=== PATIENT | female | born 1970 | race Caucasian/White ===

== ENCOUNTER 2016-07-06 09:11 | Emergency (ER) | payer SELFPAY ==
[~2016-07-06] VITALS: Ht 162.6 cm; Wt 69.5 kg
[2016-07-06 09:20] VITALS: BP 145/103
[2016-07-06] MEDS ORDERED: KETOROLAC TROMETH 60MG/2ML VIAL IM ONE (10:30)
== END 2016-07-06 11:14 | disposition home or self-care (01) ==
LOC: ER 09:18
DX: S90.461A Insect bite (nonvenomous), right great toe, initial encounter (principal); W57.XXXA Bitten or stung by nonvenomous insect and other nonvenomous arthropods, initial encounter; F17.210 Nicotine dependence, cigarettes, uncomplicated; F41.9 Anxiety disorder, unspecified; Z88.2 Allergy status to sulfonamides; Z88.8 Allergy status to other drugs, medicaments and biological substances; Z76.0 Encounter for issue of repeat prescription; Y93.89 Activity, other specified; Y99.8 Other external cause status; Y92.89 Other specified places as the place of occurrence of the external cause
CPT/HCPCS: 96372; 99283; J1885

== ENCOUNTER 2016-08-01 22:48 | Emergency (ER) | payer SELFPAY ==
[~2016-08-01] VITALS: Ht 162.6 cm; Wt 70.4 kg
[2016-08-01 23:29] VITALS: BP 139/87
[2016-08-02] MEDS ORDERED: ACETAMINOPHEN/CODEINE#3 (300/30mg) TAB PO ONE (02:45)
== END 2016-08-02 03:45 | disposition home or self-care (01) ==
LOC: ER 22:53
DX: S52.501A Unspecified fracture of the lower end of right radius, initial encounter for closed fracture (principal); Z88.8 Allergy status to other drugs, medicaments and biological substances; F17.210 Nicotine dependence, cigarettes, uncomplicated; V29.60XA Unspecified motorcycle rider injured in collision with unspecified motor vehicles in traffic accident, initial encounter; Y93.89 Activity, other specified; Y99.8 Other external cause status; Y92.89 Other specified places as the place of occurrence of the external cause
CPT/HCPCS: 29105; 29125; 73060; 73090

== ENCOUNTER 2016-08-10 12:13 | Emergency (ER) | payer SELFPAY ==
[~2016-08-10] VITALS: Ht 162.6 cm; Wt 68.5 kg
[2016-08-10] MEDS ORDERED: BACITRACIN TOP OINT 1 UD PKG TOP ONE (16:15)
[2016-08-10] MEDS ORDERED: cefTRIAXone W LIDOCAINE 1 GM IM IM ONE (16:15)
== END 2016-08-10 16:25 | disposition home or self-care (01) ==
LOC: ER 12:15
DX: S52.512D Displaced fracture of left radial styloid process, subsequent encounter for closed fracture with routine healing (principal); R21 Rash and other nonspecific skin eruption; G47.00 Insomnia, unspecified; F17.210 Nicotine dependence, cigarettes, uncomplicated; Z88.8 Allergy status to other drugs, medicaments and biological substances; Z48.01 Encounter for change or removal of surgical wound dressing
CPT/HCPCS: 29125; 73090; 99284; J0696

== ENCOUNTER 2016-10-30 14:56 | Emergency (ER) | payer SELFPAY ==
[~2016-10-30] VITALS: Ht 162.6 cm; Wt 72.6 kg
[2016-10-30 15:29] VITALS: BP 144/88
== END 2016-10-30 17:45 | disposition left against medical advice (07) ==
LOC: ER 15:19
DX: S00.96XA Insect bite (nonvenomous) of unspecified part of head, initial encounter (principal); Z53.21 Procedure and treatment not carried out due to patient leaving prior to being seen by health care provider; W57.XXXA Bitten or stung by nonvenomous insect and other nonvenomous arthropods, initial encounter; Y93.89 Activity, other specified; Y99.8 Other external cause status; Y92.89 Other specified places as the place of occurrence of the external cause

== ENCOUNTER 2017-02-06 17:35 | Emergency (ER) | payer SELFPAY ==
[2017-02-06 19:23] VITALS: BP 138/86
== END 2017-02-06 19:40 | disposition left against medical advice (07) ==
LOC: ER 17:35
DX: S00.86XA Insect bite (nonvenomous) of other part of head, initial encounter (principal); Z53.21 Procedure and treatment not carried out due to patient leaving prior to being seen by health care provider; W57.XXXA Bitten or stung by nonvenomous insect and other nonvenomous arthropods, initial encounter; Y93.89 Activity, other specified; Y92.89 Other specified places as the place of occurrence of the external cause; Y99.8 Other external cause status

== ENCOUNTER 2017-02-08 15:20 | Emergency (ER) | payer SELFPAY ==
[~2017-02-08] VITALS: Ht 162.6 cm; Wt 64.0 kg
[2017-02-08 17:04] VITALS: BP 133/97
== END 2017-02-08 17:27 | disposition home or self-care (01) ==
LOC: ER 15:23
DX: S80.862A Insect bite (nonvenomous), left lower leg, initial encounter (principal); S90.464A Insect bite (nonvenomous), right lesser toe(s), initial encounter; F17.210 Nicotine dependence, cigarettes, uncomplicated; F41.9 Anxiety disorder, unspecified; W57.XXXA Bitten or stung by nonvenomous insect and other nonvenomous arthropods, initial encounter; Y93.89 Activity, other specified; Y92.89 Other specified places as the place of occurrence of the external cause; Y99.8 Other external cause status

== ENCOUNTER 2017-03-16 12:54 | Emergency (ER) | payer SELFPAY ==
[~2017-03-16] VITALS: Ht 162.6 cm; Wt 61.2 kg
[2017-03-16 13:08] VITALS: BP 116/76
== END 2017-03-16 13:30 | disposition left against medical advice (07) ==
LOC: EDBD 12:54 → ER 13:02
DX: R10.9 Unspecified abdominal pain (principal); Z53.21 Procedure and treatment not carried out due to patient leaving prior to being seen by health care provider

== ENCOUNTER 2017-03-20 17:01 | Emergency (ER) | payer MEDICARE ==
[~2017-03-20] VITALS: Ht 162.6 cm; Wt 61.7 kg
[2017-03-20] MEDS ORDERED: ACETAMINOPHEN 325 MG TAB PO ONE (17:45)
[2017-03-20 18:14] LABS: Urine Amorphous Crystal FEW /hpf (None Seen); Urine Bacteria MOD /hpf (None Seen); Urine Blood TRACE /uL (Negative); Urine Mucus FEW (None Seen); Urine WBC 145 /hpf (0 - 5)
[2017-03-20 19:02] LABS: Basophils # (auto) 0 uL; Eosinophils # (auto) 0 uL; Monocytes # (auto) 0.5 uL
[2017-03-20 19:04] LABS: Basophils % (auto) 0.1 % (0.0-2.0); Eosinophils % (auto) 0.4 % (0.0-7.0); Hematocrit 55.2 % (36.0-46.0); Hemoglobin 17.8 g/dL (12.2-16.2); Lymphocytes # (auto) 0.4 uL; Lymphocytes % (auto) 6.6 % (10.0-50.0); Mean Corpuscular Hemoglobin 26.4 pg (28.0-32.0); Mean Corpuscular Hgb Conc. 32.2 g/dL (32.0-36.0); Mean Corpuscular Volume 81.9 fL (80.0-100.0); Monocytes % (auto) 8.1 % (0.0-12.0); Neutrophils % (auto) 84.8 % (37.0-80.0); Nucleated Red Blood Cells % 0.2 %; Platelet Count (auto) 264 10^3/uL (140-450); Red Blood Cells 6.75 10^6/uL (4.0-5.20); Red Cell Distribution Width 18.9 % (11.8-14.3); White Blood Cell 5.9 10^3/uL (4.4-10.8)
[2017-03-20 19:16] LABS: BUN/Creatinine Ratio 6.8; Calcium 8.3 mg/dL (8.5-10.1); Potassium 3.1 mmol/L (3.5-5.1)
[2017-03-20 19:19] LABS: Bilirubin, Total 0.4 mg/dL (0.2-1.0); Total Protein 6.5 g/dL (6.4-8.2)
[2017-03-21] MEDS ORDERED: SODIUM CHLORIDE 0.9% 1,000 ML IV ONE (00:45)
[2017-03-21] MEDS ORDERED: ONDANSETRON HCL 4 MG/2 ML VIAL IV ONE (00:45)
[2017-03-21] MEDS ORDERED: cefTRIAXone 1GM/50ML D5W 50 ML IV ONE (01:00)
[2017-03-21] MEDS ORDERED: LEVOFLOXACIN 500 MG TAB PO ONE (01:45)
[2017-03-21 02:00] VITALS: BP 117/70
[2017-03-21] MEDS ORDERED: cefTRIAXone SOD 1,000 MG VL IM ONE (02:45)
[2017-03-21] MEDS ORDERED: IBUPROFEN 600 MG TAB PO ONE (03:30)
[2017-03-21] MEDS ORDERED: ACETAMINOPHEN 325 MG TAB PO ONE (03:30)
== END 2017-03-21 03:07 | disposition home or self-care (01) ==
LOC: ER 17:04
DX: N39.0 Urinary tract infection, site not specified (principal); R50.9 Fever, unspecified; J44.9 Chronic obstructive pulmonary disease, unspecified; Z59.0 Homelessness; Z90.710 Acquired absence of both cervix and uterus
CPT/HCPCS: 36415; 71020; 80053; 81001; 84702; 85025; 87040; 96372; 99285; J0696; J2405

== ENCOUNTER 2017-07-05 11:14 | Emergency (ER) | payer MEDICARE ==
[~2017-07-05] VITALS: Ht 162.6 cm; Wt 67.6 kg
[2017-07-05 11:38] VITALS: BP 125/89
== END 2017-07-05 12:56 | disposition left against medical advice (07) ==
LOC: ER 11:14
DX: K08.89 Other specified disorders of teeth and supporting structures (principal); M54.5 Low back pain; Z53.21 Procedure and treatment not carried out due to patient leaving prior to being seen by health care provider

== ENCOUNTER 2017-07-11 14:20 | Emergency (ER) | payer SELFPAY ==
[~2017-07-11] VITALS: Ht 162.6 cm; Wt 65.3 kg
[2017-07-11 14:51] VITALS: BP 122/80
[2017-07-11] MEDS ORDERED: cefTRIAXone SOD 1,000 MG VL IM ONE (16:00)
== END 2017-07-11 16:15 | disposition home or self-care (01) ==
LOC: ER 14:20
DX: L08.9 Local infection of the skin and subcutaneous tissue, unspecified (principal); R51 Headache; J44.9 Chronic obstructive pulmonary disease, unspecified; F17.210 Nicotine dependence, cigarettes, uncomplicated; Z90.710 Acquired absence of both cervix and uterus; Z59.0 Homelessness; Z88.6 Allergy status to analgesic agent; Z88.8 Allergy status to other drugs, medicaments and biological substances; Z76.0 Encounter for issue of repeat prescription
CPT/HCPCS: 96372; 99283; J0696

== ENCOUNTER 2017-11-01 11:09 | Emergency (ER) | payer SELFPAY | END 2017-11-01 11:14 | disposition left against medical advice (07) | LOC: ER 11:09 | DX: R22.0 Localized swelling, mass and lump, head (principal); Z53.21 Procedure and treatment not carried out due to patient leaving prior to being seen by health care provider ==

== ENCOUNTER 2017-11-01 12:08 | Emergency (ER) | payer SELFPAY | END 2017-11-01 12:28 | disposition left against medical advice (07) | LOC: ER 12:08 | DX: R22.0 Localized swelling, mass and lump, head (principal); Z53.21 Procedure and treatment not carried out due to patient leaving prior to being seen by health care provider ==

== ENCOUNTER 2018-09-12 19:46 | Emergency (ER) | payer SELFPAY ==
[~2018-09-12] VITALS: Ht 162.6 cm; Wt 72.1 kg
[2018-09-12 20:19] VITALS: BP 137/88
[2018-09-13] MEDS ORDERED: methylPREDNISolone SOD SUCC 125 MG/2 ML VL IM ONE (00:45)
[2018-09-13] MEDS ORDERED: cefTRIAXone SOD 1,000 MG VL IM ONE (00:45)
[2018-09-13] MEDS ORDERED: ACETAMINOPHEN/CODEINE#3 (300/30mg) TAB PO ONE (00:45)
== END 2018-09-13 02:18 | disposition home or self-care (01) ==
LOC: ER 19:46
DX: M25.521 Pain in right elbow (principal); L08.9 Local infection of the skin and subcutaneous tissue, unspecified; F17.210 Nicotine dependence, cigarettes, uncomplicated; J44.9 Chronic obstructive pulmonary disease, unspecified; Z90.710 Acquired absence of both cervix and uterus; Z59.0 Homelessness; Z88.6 Allergy status to analgesic agent; Z88.1 Allergy status to other antibiotic agents
CPT/HCPCS: 73080; 96372; 99283; J0696; J2930

== ENCOUNTER 2019-06-13 08:30 | Emergency (ER) | payer SELFPAY ==
[~2019-06-13] VITALS: Ht 162.6 cm; Wt 75.8 kg
[2019-06-13 08:32] VITALS: BP 143/80
[2019-06-13] MEDS ORDERED: ACETAMINOPHEN 500 MG TAB PO ONE (09:00)
== END 2019-06-13 09:18 | disposition home or self-care (01) ==
LOC: ER 08:30
DX: S90.562A Insect bite (nonvenomous), left ankle, initial encounter (principal); J44.9 Chronic obstructive pulmonary disease, unspecified; F17.210 Nicotine dependence, cigarettes, uncomplicated; Z90.710 Acquired absence of both cervix and uterus; Z88.6 Allergy status to analgesic agent; Z88.8 Allergy status to other drugs, medicaments and biological substances; W57.XXXA Bitten or stung by nonvenomous insect and other nonvenomous arthropods, initial encounter; Y93.89 Activity, other specified; Y99.8 Other external cause status; Y92.89 Other specified places as the place of occurrence of the external cause

== ENCOUNTER 2019-11-07 21:48 | Emergency (ER) | payer SELFPAY ==
[~2019-11-07] VITALS: Ht 162.6 cm; Wt 70.3 kg
[2019-11-07 23:42] VITALS: BP 116/87
[2019-11-08] MEDS ORDERED: KETOROLAC TROMETH 60MG/2ML VIAL IM ONE (00:45)
[2019-11-08] MEDS ORDERED: cefTRIAXone SOD 1,000 MG VL IM ONE (01:00)
== END 2019-11-08 01:06 | disposition home or self-care (01) ==
LOC: ER 21:48
DX: L02.811 Cutaneous abscess of head [any part, except face] (principal); L03.811 Cellulitis of head [any part, except face]; F41.9 Anxiety disorder, unspecified; J44.9 Chronic obstructive pulmonary disease, unspecified; F17.210 Nicotine dependence, cigarettes, uncomplicated; Z88.8 Allergy status to other drugs, medicaments and biological substances; Z90.710 Acquired absence of both cervix and uterus; Z88.6 Allergy status to analgesic agent; Z59.0 Homelessness
CPT/HCPCS: 96372; 99284; J0696; J1885

== ENCOUNTER 2020-08-25 03:58 | Emergency (ER) | payer SELFPAY ==
[~2020-08-25] VITALS: Ht 162.6 cm; Wt 72.6 kg
[2020-08-25] MEDS ORDERED: ACETAMINOPHEN 500 MG TAB PO ONE (07:15)
[2020-08-25] MEDS ORDERED: ALPRAZolam 0.5 MG TAB PO ONE (07:15)
[2020-08-25] MEDS ORDERED: cefTRIAXone SOD 1,000 MG VL IM ONE (07:15)
[2020-08-25 08:00] VITALS: BP 155/89
== END 2020-08-25 08:09 | disposition left against medical advice (07) ==
LOC: ER 04:03
DX: T14.8XXA Other injury of unspecified body region, initial encounter (principal); L03.211 Cellulitis of face; W57.XXXA Bitten or stung by nonvenomous insect and other nonvenomous arthropods, initial encounter; Y93.89 Activity, other specified; Y92.89 Other specified places as the place of occurrence of the external cause; Y99.8 Other external cause status
CPT/HCPCS: 96372; 99283; J0696

== ENCOUNTER 2020-09-17 02:46 | Emergency (ER) | payer SELFPAY ==
[~2020-09-17] VITALS: Ht 162.6 cm; Wt 77.1 kg
[2020-09-17 02:48] VITALS: BP 158/106
[2020-09-17] MEDS ORDERED: ONDANSETRON ODT 4 MG TAB PO ONE (05:00)
[2020-09-17] MEDS ORDERED: CLINDAMYCIN HCL 150 MG CAP PO ONE (05:00)
[2020-09-17] MEDS ORDERED: KETOROLAC TROMETH 60MG/2ML VIAL IM ONE (05:15)
[2020-09-17] MEDS ORDERED: ACETAMINOPHEN/CODEINE#3 (300/30mg) TAB PO ONE (05:45)
== END 2020-09-17 05:58 | disposition home or self-care (01) ==
LOC: ER 02:46
DX: K05.219 Aggressive periodontitis, localized, unspecified severity (principal); F41.9 Anxiety disorder, unspecified; J44.9 Chronic obstructive pulmonary disease, unspecified; F17.210 Nicotine dependence, cigarettes, uncomplicated; Z90.710 Acquired absence of both cervix and uterus; Z88.8 Allergy status to other drugs, medicaments and biological substances; Z88.5 Allergy status to narcotic agent; Z59.0 Homelessness
CPT/HCPCS: 96372; 99284; J1885; Q0162

== ENCOUNTER 2020-11-14 16:09 | Emergency (ER) | payer MEDICAID ==
[~2020-11-14] VITALS: Ht 162.6 cm; Wt 76.2 kg
[2020-11-14 16:11] VITALS: BP 125/73
== END 2020-11-14 21:18 | disposition home or self-care (01) ==
LOC: ER 16:09
DX: K08.89 Other specified disorders of teeth and supporting structures (principal); Z53.21 Procedure and treatment not carried out due to patient leaving prior to being seen by health care provider

== ENCOUNTER 2021-01-20 11:28 | Emergency (ER) | payer MEDICAID, OTHER ==
[~2021-01-20] VITALS: Ht 162.6 cm; Wt 71.7 kg
[2021-01-20 11:52] VITALS: BP 110/74
[2021-01-20] MEDS ORDERED: KETOROLAC TROMETH 60MG/2ML VIAL IM ONE (12:15)
== END 2021-01-20 15:19 | disposition home or self-care (01) ==
LOC: ER 11:28
DX: S32.441A Displaced fracture of posterior column [ilioischial] of right acetabulum, initial encounter for closed fracture (principal); S93.401A Sprain of unspecified ligament of right ankle, initial encounter; F17.210 Nicotine dependence, cigarettes, uncomplicated; F12.10 Cannabis abuse, uncomplicated; F15.10 Other stimulant abuse, uncomplicated; J44.9 Chronic obstructive pulmonary disease, unspecified; Z59.0 Homelessness; Z90.10 Acquired absence of unspecified breast and nipple; Z88.8 Allergy status to other drugs, medicaments and biological substances; Z90.710 Acquired absence of both cervix and uterus; W01.0XXA Fall on same level from slipping, tripping and stumbling without subsequent striking against object, initial encounter; Y93.89 Activity, other specified; Y92.89 Other specified places as the place of occurrence of the external cause; Y99.8 Other external cause status
CPT/HCPCS: 73502; 73610; 73700; 96372; 99284; J1885

== ENCOUNTER 2021-06-20 00:54 | Emergency (ER) | payer MEDICAID, MEDICARE ==
[~2021-06-20] VITALS: Ht 165.1 cm; Wt 75.3 kg
[2021-06-20 04:01] VITALS: BP 102/63
[2021-06-20] MEDS ORDERED: AMOX-277 PO (05:31)
== END 2021-06-20 05:17 | disposition left against medical advice (07) ==
LOC: ER 00:55
DX: S81.851A Open bite, right lower leg, initial encounter (principal); J44.9 Chronic obstructive pulmonary disease, unspecified; F17.210 Nicotine dependence, cigarettes, uncomplicated; Z90.710 Acquired absence of both cervix and uterus; Z88.8 Allergy status to other drugs, medicaments and biological substances; W54.0XXA Bitten by dog, initial encounter; Y93.89 Activity, other specified; Y92.89 Other specified places as the place of occurrence of the external cause; Y99.8 Other external cause status

== ENCOUNTER 2021-06-26 11:27 | Inpatient (IN) | payer MEDICARE ==
[~2021-06-26] VITALS: Ht 162.6 cm; Wt 77.5 kg
[~2021-06-26 11:27] MED LIST: AMOX-277 PO
[2021-06-26] MEDS ORDERED: VANCOMYCIN 1GM/250ML 250 ML IV ONE (12:15)
[2021-06-26] MEDS ORDERED: PIPERACILLIN-TAZO 4.5GM 100 ML IV ONE (12:15)
[2021-06-26] MEDS ORDERED: LACTATED RINGER'S 1,000 ML IV ONE (12:15)
[2021-06-26] MEDS ORDERED: TETANUS-DIPTH-ACEL PERTUSSIS 0.5ML SYR Tdap IM ONE (12:15)
[2021-06-26] MEDS ORDERED: CLINDAMYCIN 600MG IV 50 ML IV ONE (12:15)
[2021-06-26 14:29] LABS: Basophils # (auto) 0 10 ^3/uL (0-0.2); Basophils % (auto) 0.6 % (0.0-2.0); Eosinophils # (auto) 0 10 ^3/uL (0-0.8); Eosinophils % (auto) 0.8 % (0.0-7.0); Hematocrit 33.1 % (36.0-46.0); Hemoglobin 10.7 g/dL (12.2-16.2); Lymphocytes # (auto) 1.5 10 ^3/uL (0.4-5.4); Lymphocytes % (auto) 24.5 % (10.0-50.0); Mean Corpuscular Hgb Conc. 32.4 g/dL (32.0-36.0); Mean Corpuscular Volume 74.3 fL (80.0-100.0); Monocytes # (auto) 0.6 10 ^3/uL (0-1.3); Monocytes % (auto) 10.5 % (0.0-12.0); Neutrophils # (auto) 3.8 10 ^3/uL (1.6-8.6); Neutrophils % (auto) 63.6 % (37.0-80.0); Nucleated Red Blood Cells % 0.2 %; Red Blood Cells 4.46 10^6/uL (4.0-5.20); Red Cell Distribution Width 18.9 % (11.8-14.3); White Blood Cell 5.9 10^3/uL (4.4-10.8)
[2021-06-26 14:34] LABS: Albumin 3.4 g/dL (3.4-5.0); Calcium 9.2 mg/dL (8.5-10.1); Potassium 3.9 mmol/L (3.5-5.1)
[2021-06-26 14:44] LABS: BUN/Creatinine Ratio 14.9; Bilirubin, Total 0.3 mg/dL (0.2-1.0); CRP High Sensitivity 0.99 mg/dL (< 0.3); Total Protein 7.5 g/dL (6.4-8.2)
[2021-06-26 15:23] LABS: INR 0.98 (0.9-1.15); Partial Thromboplastin Time 26.2 sec (23.6-33.0)
[2021-06-26] MEDS ORDERED: IOHEXOL 300 MG/ML 100ML BOTTLE IJ ONE (17:00)
[2021-06-26] MEDS ORDERED: HYDROcodone-ACET 5/325MG TAB PO ONE (19:00)
[2021-06-27] MEDS ORDERED: HYDROcodone-ACET 10/325MG TAB PO ONE (03:15)
[2021-06-27] MEDS ORDERED: MORPHINE SULFATE INJECTION 2 MG/ML SYRG IV ONE (09:30)
[2021-06-27] MEDS ORDERED: ONDANSETRON HCL 4 MG/2 ML VIAL IV ONE (09:30)
[2021-06-27] MEDS ORDERED: CLINDAMYCIN 600MG IV 50 ML IV ONE (10:15)
[2021-06-27] MEDS ORDERED: cefTRIAXone 1GM/50ML D5W 50 ML IV ONE (10:15)
[2021-06-27] MEDS ORDERED: LORazepam 2MG/ML-1ML VIAL IM ONE (11:15)
[2021-06-27] MEDS ORDERED: NITROGLYCERIN 0.4 MG SL TAB SL PRN (12:15)
[2021-06-27] MEDS ORDERED: MORPHINE SULFATE INJECTION 2 MG/ML SYRG IV PRN ×2 (12:15→16:45)
[2021-06-27] MEDS ORDERED: SODIUM CHLORIDE 0.9% 1,000 ML IV SCH (14:45)
[2021-06-27] MEDS ORDERED: HYDROcodone-ACET 5/325MG TAB PO PRN (16:45)
[2021-06-27] MEDS ORDERED: LORazepam 2MG/ML-1ML VIAL IV PRN (16:45)
[2021-06-27] MEDS: HYDROcodone-ACET 5/325MG TAB PO ONE ×2 (16:45→18:49)
[2021-06-27] MEDS ORDERED: DOCUSATE SOD 100 MG CAP PO PRN (16:45)
[2021-06-27] MEDS ORDERED: VANCOMYCIN PER PHARMACY 0 MG IV SCH (16:45)
[2021-06-27] MEDS ORDERED: LORazepam 0.5 MG TAB PO PRN (16:45)
[2021-06-27] MEDS ORDERED: ONDANSETRON HCL 4 MG/2 ML VIAL IV PRN (16:45)
[2021-06-27] MEDS ORDERED: PIPERACILLIN-TAZO 4.5GM 100 ML IV ONE (16:45)
[2021-06-27] MEDS ORDERED: PANTOPRAZOLE 40 MG/10 ML VIAL INJ IV ONE (16:45)
[2021-06-27] MEDS ORDERED: MULTIPLE VITAMINS W/ MINERALS TAB PO ONE (17:00)
[2021-06-27] MEDS ORDERED: THIAMINE 100mg/ml INJ (200mg/2ml VIAL) IV ONE (17:00)
[2021-06-27] MEDS ORDERED: FOLIC ACID 1 MG TAB PO ONE (17:00)
[2021-06-27 17:41] VITALS: BP 118/66
[2021-06-27] MEDS ORDERED: CLON-853 PO (18:10)
[2021-06-27] MEDS ORDERED: ATORVASTATIN 20 MG TAB PO SCH (22:00)
[2021-06-27 22:33] VITALS: BP 108/74
[2021-06-28] MEDS ORDERED: VANCOMYCIN 1GM/250ML 250 ML IV SCH
[2021-06-28 02:54] LABS: Amphetamine Screen, Urine POSITIVE (NEGATIVE); Barbiturate Scree,Urine NEGATIVE (NEGATIVE); Benzodiazephine Screen, Urine NEGATIVE (NEGATIVE); Cannabinoid Screen, Urine NEGATIVE (NEGATIVE); Cocaine Screen, Urine NEGATIVE (NEGATIVE); Opiate Scree,Urine POSITIVE (NEGATIVE); Phencyclidine Screen, Urine NEGATIVE (NEGATIVE)
[2021-06-28 05:00] VITALS: BP 103/63
[2021-06-28] MEDS ORDERED: PIPERACILLIN-TAZO 4.5GM 100 ML IV SCH (06:00)
[2021-06-28] MEDS ORDERED: ASPirin 81 mg TAB PO SCH (10:00)
[2021-06-28] MEDS ORDERED: ENOXAPARIN SOD 40 MG/0.4 ML SYRINGE SC SCH (10:00)
[2021-06-28] MEDS ORDERED: PANTOPRAZOLE 40 MG/10 ML VIAL INJ IV SCH (10:00)
[2021-06-28] MEDS ORDERED: MULTIPLE VITAMINS W/ MINERALS TAB PO SCH (10:00)
[2021-06-28] MEDS ORDERED: FOLIC ACID 1 MG TAB PO SCH (10:00)
[2021-06-28] MEDS ORDERED: THIAMINE HCL 100 MG TAB PO SCH (10:00)
[2021-06-28] MEDS ORDERED: CITALOPRAM HYDROBR 20 MG TAB PO SCH (10:00)
== END 2021-06-28 06:30 | disposition left against medical advice (07) | DRG 603 ==
LOC: ER 11:27 → OVERFLOW 06-27 12:11 → EAST 06-27 16:30
PROVIDERS: ADMIT Hospitalist; ATTEND Hospitalist
DX: L03.115 Cellulitis of right lower limb (principal); L97.209 Non-pressure chronic ulcer of unspecified calf with unspecified severity; T14.8XXA Other injury of unspecified body region, initial encounter; L02.415 Cutaneous abscess of right lower limb; Z20.822 Contact with and (suspected) exposure to COVID-19; D50.9 Iron deficiency anemia, unspecified; Z53.29 Procedure and treatment not carried out because of patient's decision for other reasons; E66.01 Morbid (severe) obesity due to excess calories; E78.5 Hyperlipidemia, unspecified; F10.10 Alcohol abuse, uncomplicated; F12.90 Cannabis use, unspecified, uncomplicated; F17.210 Nicotine dependence, cigarettes, uncomplicated; J44.9 Chronic obstructive pulmonary disease, unspecified; K21.9 Gastro-esophageal reflux disease without esophagitis; K29.70 Gastritis, unspecified, without bleeding; F41.9 Anxiety disorder, unspecified; F32.A Depression, unspecified; W54.0XXA Bitten by dog, initial encounter; Z88.8 Allergy status to other drugs, medicaments and biological substances; Z68.29 Body mass index [BMI] 29.0-29.9, adult; Z59.00 Homelessness unspecified; Z90.710 Acquired absence of both cervix and uterus; Y93.89 Activity, other specified; Y92.89 Other specified places as the place of occurrence of the external cause; Y99.8 Other external cause status
CPT/HCPCS: 36415; 73701; 80053; 80307; 82550; 83605; 85025; 85610; 85730; 86141; 86850; 86900; 86901; 87077; 87086; 87186; 87205; 87426; 90715; 93005; 93926; 93970; 96361; 96365; 96367; C9113; G0378; J0696; J2405; J2543; J3490

== ENCOUNTER 2022-12-23 17:42 | Emergency (ER) | payer MEDICARE ==
[~2022-12-23] VITALS: Ht 160 cm; Wt 78.4 kg
[~2022-12-23 17:42] MED LIST changes: -AMOX-277 PO; +AMOX875T4 PO; +CLON-853 PO
[2022-12-23] MEDS ORDERED: CEPHALEXIN 250 MG CAP PO ONE (19:15)
[2022-12-23] MEDS ORDERED: HYDROcodone-ACET 5/325MG TAB PO ONE (19:15)
[2022-12-23] MEDS ORDERED: CLINDAMYCIN HCL 150 MG CAP PO ONE (19:45)
[2022-12-23] MEDS ORDERED: CLIN300C70 PO (19:48)
[2022-12-23] MEDS ORDERED: IBU600T PO (19:48)
[2022-12-23 20:40] VITALS: BP 138/83; PULSE 87; RESP 20; TEMP 97.8; O2SAT 100
== END 2022-12-23 20:40 | disposition home or self-care (01) ==
LOC: ER 17:42
DX: K04.7 Periapical abscess without sinus (principal); K02.9 Dental caries, unspecified; L03.211 Cellulitis of face; J44.9 Chronic obstructive pulmonary disease, unspecified; F17.210 Nicotine dependence, cigarettes, uncomplicated; Z90.710 Acquired absence of both cervix and uterus; Z59.00 Homelessness unspecified; Z79.2 Long term (current) use of antibiotics; Z79.899 Other long term (current) drug therapy; Z88.8 Allergy status to other drugs, medicaments and biological substances

== ENCOUNTER 2023-02-07 15:56 | Emergency (ER) | payer SELFPAY ==
[~2023-02-07] VITALS: Ht 162.6 cm; Wt 82.0 kg
[~2023-02-07 15:56] MED LIST changes: +CLIN300C70 PO; +IBU600T PO
[2023-02-07] MEDS ORDERED: HYDROcodone-ACET 5/325MG TAB PO ONE (16:45)
[2023-02-07 16:52] VITALS: BP 131/71; PULSE 111; RESP 18; TEMP 98.3; O2SAT 98
[2023-02-07] MEDS ORDERED: CLIN300C70 PO (16:55)
[2023-02-07] MEDS ORDERED: HUR60 MT (16:55)
== END 2023-02-07 17:15 | disposition home or self-care (01) ==
LOC: ER 15:56
DX: K04.7 Periapical abscess without sinus (principal); F17.210 Nicotine dependence, cigarettes, uncomplicated; F12.10 Cannabis abuse, uncomplicated; F15.10 Other stimulant abuse, uncomplicated; Z88.1 Allergy status to other antibiotic agents; Z59.00 Homelessness unspecified

== ENCOUNTER 2023-06-10 23:30 | Emergency (ER) | payer SELFPAY ==
[~2023-06-10] VITALS: Ht 162.6 cm; Wt 77.0 kg
[~2023-06-10 23:30] MED LIST changes: +HUR60 MT
[2023-06-10 23:55] VITALS: BP 134/81; PULSE 120; RESP 18; O2SAT 99
[2023-06-11] MEDS ORDERED: AMOX875T4 PO (01:25)
[2023-06-11] MEDS ORDERED: IBUP-1456 PO (01:25)
[2023-06-11] MEDS ORDERED: KETOROLAC TROMETH 60MG/2ML VIAL IM ONE (01:30)
[2023-06-11] MEDS ORDERED: cefTRIAXone SOD 1,000 MG VL IM ONE (01:30)
== END 2023-06-11 01:25 | disposition home or self-care (01) ==
LOC: ER 23:30
DX: K04.7 Periapical abscess without sinus (principal); J44.9 Chronic obstructive pulmonary disease, unspecified; F41.9 Anxiety disorder, unspecified; F32.9 Major depressive disorder, single episode, unspecified; F17.210 Nicotine dependence, cigarettes, uncomplicated; Z98.890 Other specified postprocedural states; Z88.8 Allergy status to other drugs, medicaments and biological substances; Z79.899 Other long term (current) drug therapy
CPT/HCPCS: 96372; 99284; J0696; J1885

== ENCOUNTER 2024-09-09 12:54 | Emergency (ER) | payer MEDICARE ==
[~2024-09-09] VITALS: Ht 162.6 cm; Wt 77.0 kg
[~2024-09-09 12:54] MED LIST changes: +CLIN1CAP70 PO; -CLIN300C70 PO; +IBUP-1456 PO
[2024-09-09] MEDS: TETANUS-DIPTH-ACEL PERTUSSIS 0.5ML SYR Tdap IM ONE (16:30)
--- NOTE | 2024-09-09 16:41 | ED.PDOC ---
History of Present Illness HPI Comments 54F presents to the ER w/ no prior Hx associated to the c/c of eye pain. Pt reports that she burnt herself w/ a curling iron w/ the hot air. Pt reports that when she looks out of her right eye, it is blurry. PMHx of Anxiety, COPD, Depression. SHx of hysterectomy. Denies chills, fever, N/V/D, SOB, CP No other associated symptoms, modifiers, recent injuries or sick contacts present at this time. Chief Complaint: Eye Problem Time Seen by MD: 14:05 Primary Care Provider: NONE Reviewed Notes: Nurses Notes, Medications, Allergies Allergies: Coded Allergies: Carbamazepine (Verified Allergy, Unknown, 01/13/16) Tiagabine (Verified Allergy, Unknown, 04/18/16) Tramadol (Unverified Allergy, Unknown, 03/20/17) Home Meds Active Scripts Ibuprofen (Ibuprofen) 800 Mg Tab, 1 TAB PO TID PRN, #30 TAB 0 Refills Prov:NICOLE SIMMONS 06/11/23 Amoxicillin & Pot Clavulanate (Amoxicillin/Potassium Cla) 875 Mg Tab, 1 TAB PO BID for 7 Days, #14 TAB 0 Refills Prov:NICOLE SIMMONS 06/11/23 Benzocaine (Dental) (HURRICAINE SPRAY) 1 Spr Sp, 2 SPR MT TID, #60 SPRAY Prov:CHRISTINE BHAKTA PA 02/07/23 Clindamycin Hcl (Clindamycin Hcl) 300 Mg Cap, 300 MG PO QID for 10 Days, #40 CAP Prov:CHRISTINE BHAKTA 02/07/23 Ibuprofen Micronized (MOTRIN TABLET) 600 Mg Tb, 1 TAB PO TID PRN, #20 TAB as needed for pain Prov:MEADOWSHARSHALDA Q READINESS PARAPROFESSIONAL 12/23/22 Clindamycin Hcl (Clindamycin Hcl) 300 Mg Cap, 1 CAP PO QID for 10 Days, #40 CAP Prov:MEADOWS,NORALDA Q READINESS PARAPROFESSIONAL 12/23/22 Amoxicillin & Pot Clavulanate (Amoxicillin/Potassium Cla) 875 Mg Tab, 1 TAB PO BID, #20 TAB Prov:ELVA RODRIGUEZ MD 06/20/21 Reported Medications Clonazepam (Clonazepam) 1 Mg Tab, 1 TAB PO BID, #60 TAB 1 Refill 06/27/21 Information Source: Patient Mode of Arrival: Wheelchair Severity: Moderate Timing: Hours Duration: Since onset, Hours Prehospital treatment: None Past Medical History PAST MEDICAL HISTORY: Anxiety, COPD, Depression Surgical History: Hysterectomy 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 Family History Family History: Reviewed,noncontributory to illness, Unknown Social History Smoker: Unknown Alcohol: Unknown Drugs: Denies Drug Use Lives In: Homeless Constitutional: denies: chills, diaphoresis, fatigue, fever, malaise, sweats, weakness, others EENTM: reports: eye pain; denies: blurred vision, double vision, ear bleeding, ear discharge, ear drainage, ear pain, ear ringing, eye redness, hearing loss, mouth pain, mouth swelling, nasal discharge, nose bleeding, nose congestion, nose pain, photophobia, tearing, throat pain, throat swelling, voice changes, others Respiratory: denies: cough, hemoptysis, orthopnea, SOB at rest, shortness of breath, SOB with excertion, stridor, wheezing, others Cardiovascular: denies: chest pain, dizzy spells, diaphoresis, Dyspnea on exertion, edema, irregular heart beat, left arm pain, lightheadedness, palpitations, PND, syncope, others Gastrointestinal: denies: abdomen distended, abdominal pain, blood streaked bowels, constipated, diarrhea, dysphagia, difficulty swallowing, hematemesis, melena, nausea, poor appetite, poor fluid intake, rectal bleeding, rectal pain, vomiting, others Genitourinary: denies: abnormal vagina bleeding, burning, dyspareunia, dysuria, flank pain, frequency, hematuria, incontinence, pain, , vagina discharge, urgency, others Neurological: denies: dizziness, fainting, headache, left sided numbness, left sided weakness, numbness, paresthesia, pre-existing deficit, right sided numbness, right sided weakness, seizure, speech problems, tingling, tremors, weakness, others Musculoskeletal: denies: back pain, gout, joint pain, joint swelling, muscle pain, muscle stiffness, neck pain, others Integumetry: denies: bruises, change in color, change in hair/nails, dryness, laceration, lesions, lumps, rash, wounds, others Allergic/Immunocompromised: denies: Difficulty Healing, Frequent Infections, Hives, Itching, others Hematologic/Lymphatic: denies: anemia, blood clots, easy bleeding, easy bruising, swollen glands, others Endocrine: denies: excessive hunger, excessive sweating, excessive thirst, excessive urination, flushing, intolerance to cold, intolerance to heat, unexplained weight gain, unexplained weight loss, others Psychiatric: denies: anxiety, bipolar disorder, depression, hopeless, panic disorder, schizophrenia, sleepless, suicidal, others All Other Systems: Reviewed and Negative Physical Exam General Appearance: No Apparent Distress, Normal HEENT: Normal ENT Inspection, Pharynx Normal, TMs Normal Neck: Full Range of Motion, Non-Tender, Normal, Normal Inspection Respiratory: Chest Non-Tender, Lungs Clear, No Accessory Muscle Use, No Respiratory Distress, Normal Breath Sounds Cardiovascular: No Edema, No JVD, No Murmur, No Gallop, Normal Peripheral Pulses, Regular Rate/Rhythm Breast Exam: Deferred Gastrointestinal: No Organomegaly, Non Tender, No Pulsatile Mass, Normal Bowel Sounds, Soft Genitalia: Deferred Pelvic: Deferred Rectal: Deferred Extremities: No calf tenderness, Normal capillary refill, Normal inspection, Normal range of motion, Non-tender, No pedal edema Musculoskeletal : Apperance: Normal Neurologic: Alert, can filling room sweeper II-XII nml as Tested, No Motor Deficits, Normal Affect, Normal Mood, No Sensory Deficits Cerebellar Function: Normal Reflexes: Normal Skin: Dry, Normal Color, Warm Lymphatic: No Adenopathy Was a procedure done? Was a procedure done?: No Differential Dx Considerations may include: cornea abrasion, intraocular injury, globe rupture, corneal FB, corneal burn, corneal laceration X-Ray, Labs, Meds, VS Vital Signs Date Time Temp Pulse Resp B/P (MAP) Pulse Ox O2 Delivery O2 Flow Rate FiO2 09/09/24 13:16 98.0 98 24 26/86 (66) 99 98.0 Time of 1ST Reevaluation: 14:35 Reevaluation 1ST: Unchanged Time of 2ND Reevaluation: 17:16 Reevaluation 2ND: Improved Patient Education/Counseling: Diagnosis, Treatment, Prognosis Family Education/Counseling: No Family Present Additional Information The following tests were ordered, and results were reviewed by me: PHA Additional Information was gathered from interviewing the following independent historians: 06/11/23 I discussed treatment and results with medical personnel and: Patient Comprehensive systems review obtained and negative except for what is stated in the HPI. i consulted ophthalmology at [facility], Dr Sarmiento recommends ophthalmic erythromycin and follow up with her own ophthal. o updated pt this and she is agreeable Departure 1 Departure Time of Disposition: 17:16 Impression: Primary Impression: Corneal abnormality Disposition: HOME / SELF CARE / HOMELESS Condition: Good e-Prescriptions Erythromycin (Erythromycin) 5 Mg/Gm Oin 1 MG OP Q6HP PRN, #1 OIN Prov: ERVIN MONDRAGON MD 09/09/24 Hydrocodone-Acetaminophen (Hydrocodone Bitartrate/AC 5-325 mg) 1 Tab Tab 1 TAB PO Q8HP PRN for 3 Days, #9 TAB Prov: ERVIN MONDRAGON MD 09/09/24 Discharged With: Self, Relative Critical Care Note Critical Care Time?: No Stability Stability form required: No I personally scribed for ERVIN MONDRAGON MD ([email or web address]) on 09/09/24 at 16:41. Electronically submitted by Chato Isaacs ([email or web address]). ERVIN MONDRAGON MD Sep 09, 2024 16:41
[2024-09-09] MEDS ORDERED: HYDR-4902 PO (17:18)
[2024-09-09] MEDS ORDERED: ERY05OO OP (17:18)
[2024-09-09] MEDS: HYDROcodone-ACET 10/325MG TAB PO ONE (17:33)
[2024-09-09] MEDS: ERYTHROMY OPTH OINT 5mg/gm 1gm or 3.5gm tube OP ONE (17:35)
[2024-09-09 17:45] VITALS: BP 154/68; PULSE 103; RESP 18; TEMP 97.8; O2SAT 96
== END 2024-09-09 18:18 | disposition home or self-care (01) ==
LOC: ER 12:54
DX: H18.9 Unspecified disorder of cornea (principal); F41.9 Anxiety disorder, unspecified; J44.9 Chronic obstructive pulmonary disease, unspecified; F32.A Depression, unspecified; Z90.710 Acquired absence of both cervix and uterus; Z88.5 Allergy status to narcotic agent; Z79.899 Other long term (current) drug therapy; Z59.00 Homelessness unspecified; Z88.1 Allergy status to other antibiotic agents
CPT/HCPCS: 90715

== ENCOUNTER 2025-03-01 12:29 | Emergency (ER) | payer MEDICAID ==
[~2025-03-01] VITALS: Ht 157.5 cm; Wt 74.9 kg
[~2025-03-01 12:29] MED LIST changes: +ERY05OO OP; +HYDR-4902 PO
[2025-03-01 12:31] VITALS: BP 122/73; PULSE 114; TEMP 98
--- NOTE | 2025-03-01 13:09 | ED.PDOC ---
SOB-HPI HPI Comments 54y F who presents to the ED for chief complaint of shortness of breath. Pt states she took COVID test last night which was positive after pt has been having fever and headache for the past 3x days. Pt states she has been short of breath for the past 3x months intermittently but states it got worse over the past 3 days with noted exacerbation while walking or ambulating, Pt otherwise has noted history of COPD but otherwise denies any other history. Pt in the ED has noted heart rate 114 with otherwise stable vitals including 02 sat of 100% on room air. Pt otherwise denies any other symptoms at this time. 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 DRIVER History Family History Family History: Reviewed,noncontributory to illness, Unknown Social History Smoker: Cigarettes Alcohol: Denies ETOH Use Drugs: Denies Drug Use Lives In: Homeless Constitutional: reports: fever; denies: chills, diaphoresis, fatigue, malaise, sweats, weakness, others EENTM: denies: blurred vision, double vision, ear bleeding, ear discharge, ear drainage, ear pain, ear ringing, eye pain, eye redness, hearing loss, mouth pain, mouth swelling, nasal discharge, nose bleeding, nose congestion, nose pain, photophobia, tearing, throat pain, throat swelling, voice changes, others Respiratory: reports: shortness of breath, SOB with excertion; denies: cough, hemoptysis, orthopnea, SOB at rest, stridor, wheezing, others Cardiovascular: denies: chest pain, dizzy spells, diaphoresis, Dyspnea on exertion, edema, irregular heart beat, left arm pain, lightheadedness, palpitations, PND, syncope, others Gastrointestinal: denies: abdomen distended, abdominal pain, blood streaked bowels, constipated, diarrhea, dysphagia, difficulty swallowing, hematemesis, melena, nausea, poor appetite, poor fluid intake, rectal bleeding, rectal pain, vomiting, others Genitourinary: denies: abnormal vagina bleeding, burning, dyspareunia, dysuria, flank pain, frequency, hematuria, incontinence, pain, , vagina discharge, urgency, others Neurological: reports: headache; denies: dizziness, fainting, left sided numbness, left sided weakness, numbness, paresthesia, pre-existing deficit, right sided numbness, right sided weakness, seizure, speech problems, tingling, tremors, weakness, others Musculoskeletal: denies: back pain, gout, joint pain, joint swelling, muscle pain, muscle stiffness, neck pain, others Integumetry: denies: bruises, change in color, change in hair/nails, dryness, laceration, lesions, lumps, rash, wounds, others Allergic/Immunocompromised: denies: Difficulty Healing, Frequent Infections, Hives, Itching, others Hematologic/Lymphatic: denies: anemia, blood clots, easy bleeding, easy bruising, swollen glands, others Endocrine: denies: excessive hunger, excessive sweating, excessive thirst, excessive urination, flushing, intolerance to cold, intolerance to heat, unexplained weight gain, unexplained weight loss, others Psychiatric: denies: anxiety, bipolar disorder, depression, hopeless, panic disorder, schizophrenia, sleepless, suicidal, others All Other Systems: Reviewed and Negative Physical Exam General Appearance: Mild Distress HEENT: Normal ENT Inspection, Pharynx Normal, TMs Normal Neck: Full Range of Motion, Non-Tender, Normal, Normal Inspection Respiratory: Chest Non-Tender, Respiratory Distress, Wheezing Cardiovascular: No Edema, No JVD, No Murmur, No Gallop, Normal Peripheral Pulses, Regular Rate/Rhythm Breast Exam: Deferred Gastrointestinal: No Organomegaly, Non Tender, No Pulsatile Mass, Normal Bowel Sounds, Soft Genitalia: Deferred Pelvic: Deferred Rectal: Deferred Extremities: No calf tenderness, Normal capillary refill, Normal inspection, Normal range of motion, Non-tender, No pedal edema Musculoskeletal : Apperance: Normal Neurologic: Alert, principal law clerk II-XII nml as Tested, Motor Weakness, Normal Affect, Normal Mood, No Sensory Deficits Cerebellar Function: Normal Reflexes: Normal Skin: Dry, Normal Color, Warm Lymphatic: No Adenopathy Was a procedure done? Was a procedure done?: No Differential Dx Differential Diagnosis: Bronchitis, COPD, Pneumonia, Respiratory Distress, Sinusitis, URI Comments COVID, influenza A and B, viral syndrome X-Ray, Labs, Meds, VS Vital Signs Date Time Temp Pulse Resp B/P (MAP) Pulse Ox O2 Delivery O2 Flow Rate FiO2 03/01/25 13:17 18 97 Room Air* 0 21 03/01/25 12:31 98.0 114 20 122/73 100 98.0 Current Medications Medications (Trade) Dose Ordered Sig/Tata Route Start Time Stop Time Status Last Admin Ipratropium [place] (Atrovent Medneb) 1 mg ONCE ONCE N 03/01/25 13:00 03/01/25 13:01 DC 03/01/25 13:16 Albuterol (Ventolin Medneb) 20 mg ONCE ONCE N 03/01/25 13:00 03/01/25 13:01 DC 03/01/25 13:15 PROCEDURE(s): CXR2 - CHEST TWO VIEWS ROUTINE IMPRESSION: 1. No acute cardiopulmonary disease. We did order a breathing treatment of albuterol and Atrovent. The patient did receive a breathing treatment The patient also had lab work as well as an influenza a and B as well as a COVID test but the patient decided that she did not want to stay. The patient has now signed out against medical advice. The patient's oxygen saturation on room air upon leaving is 97% Images Reviewed?: Images reviewed and evaluated by me Time of 1ST Reevaluation: 13:35 Reevaluation 1ST: Unchanged Patient Education/Counseling: Diagnosis, Treatment, Prognosis Family Education/Counseling: No Family Present SEPSIS Sepsis Screen Date sepsis recognized/suspect: Mar 01, 2025 Time Sepsis recognized/suspect: 1231 Recent Procedure: No On Antibiotic Therapy: No Respiratory Rate >20: No Heart Rate >90: Yes Temp<36 C (96.8 F) or >38.3 C: No SBP <90 or MAP <65 mmHG: No New Acute Mental Status Change: No Is the patient on CPAP, BIPAP,: No Physician Orders Heplock Iv (03/01/25 12:59) Pulse Oximetry (03/01/25 12:59) [place]yer (03/01/25 12:59) Blood Pressure (03/01/25 12:59) Chest Two Views Routine (03/01/25 12:59) Electrocardigram (03/01/25 12:59) Covid19 Antigen Leyla (03/01/25 ) Vital Signs Date Time Temp Pulse Resp B/P (MAP) Pulse Ox O2 Delivery O2 Flow Rate FiO2 03/01/25 13:17 18 97 Room Air* 0 21 03/01/25 12:31 98.0 114 20 122/73 100 98.0 Medications Medications Dose Ordered Sig/Tata Route Start Time Stop Time Status Last Admin Dose Admin Albuterol 20 mg ONCE ONCE [facility] 03/01/25 13:00 03/01/25 13:01 DC 03/01/25 13:15 Ipratropium [place] 1 mg ONCE ONCE [facility] 03/01/25 13:00 03/01/25 13:01 DC 03/01/25 13:16 Departure 1 Departure Time of Disposition: 15:49 Impression: Primary Impression: Acute exacerbation of COPD with asthma Additional Impression: Suspected COVID-19 virus infection Disposition: LEFT AGAINST MEDICAL ADVICE Condition: Fair Critical Care Note Critical Care Time?: No Stability Stability form required: No Heart Score Heart Score: Heart Score Response (Comments) Value History N/A 0 EKG N/A 0 Age N/A 0 Risk Factors N/A 0 Troponin N/A 0 Total 0 I personally scribed for RICARDO ALFONSO MD ([email or web address]) on 03/01/25 at 13:09. Electronically submitted by Raya Mims ([facility] I personally scribed for RICARDO ALFONSO MD ([email or web address]) on 03/01/25 at 14:35. Electronically submitted by Raya Mims ([facility]). RICARDO ALFONSO MD Mar 01, 2025 13:09
[2025-03-01] MEDS: ALBUTEROL SULF 2.5 MG/0.5ML(0.5%) NEB SOLN HHN ONE (13:15)
[2025-03-01] MEDS: IPRATROPIUM BROM 0.5 MG/2.5ML INH SOL HHN ONE (13:16)
[2025-03-01] MEDS: ALBUTEROL SULF 2.5 MG/0.5ML(0.5%) NEB SOLN ONE (13:16)
[2025-03-01] MEDS: IPRATROPIUM BROM 0.5 MG/2.5ML INH SOL ONE (13:16)
[2025-03-01 13:17] VITALS: RESP 18; O2SAT 97
--- NOTE | 2025-03-01 13:38 | DVH ---
XY CHEST TWO VIEWS ROUTINE CLINICAL HISTORY: sob COMPARISON: None TECHNIQUE: Frontal and lateral view of the chest was obtained FINDINGS: Lines and Tubes: None Lungs: No focal consolidation. Pleura: No effusion. No pneumothorax. Cardiomediastinal contours: Unremarkable Bones: No acute osseous abnormality. IMPRESSION: No acute cardiopulmonary disease.
[2025-03-01] MEDS: methylPREDNISolone SOD SUCC 125 MG/2 ML VL IV ONE (15:48)
== END 2025-03-01 15:49 | disposition left against medical advice (07) ==
LOC: ER 12:29
DX: J44.1 Chronic obstructive pulmonary disease with (acute) exacerbation (principal); F17.210 Nicotine dependence, cigarettes, uncomplicated; F41.9 Anxiety disorder, unspecified; F32.A Depression, unspecified; Z20.822 Contact with and (suspected) exposure to COVID-19; Z98.84 Bariatric surgery status; Z90.710 Acquired absence of both cervix and uterus; Z59.00 Homelessness unspecified; Z90.49 Acquired absence of other specified parts of digestive tract
CPT/HCPCS: 71046; 94640

== ENCOUNTER 2025-03-20 12:43 | Emergency (ER) | payer MEDICAID ==
[~2025-03-20] VITALS: Ht 162.6 cm; Wt 76.4 kg
[2025-03-20 12:44] VITALS: BP 145/88; PULSE 111; RESP 18; TEMP 97.8; O2SAT 98
[2025-03-20] MEDS ORDERED: SODIUM CHLORIDE 0.9% 1,000 ML IVB ONE (14:30)
[2025-03-20] MEDS ORDERED: MORPHINE SULFATE 4 MG/ML SYR/VIAL IV ONE (14:30)
[2025-03-20] MEDS ORDERED: ONDANSETRON HCL 4 MG/2 ML VIAL IV ONE (14:30)
== END 2025-03-20 14:40 | disposition left against medical advice (07) ==
LOC: ER 12:43
DX: R10.A3 Flank pain, bilateral (principal); Z53.21 Procedure and treatment not carried out due to patient leaving prior to being seen by health care provider